=== PATIENT | female | born 1940 | race Caucasian/White ===

== ENCOUNTER 2018-07-26 22:46 | Inpatient (IN) | payer MEDICARE, BC ==
[~2018-07-26] VITALS: Ht 165.1 cm; Wt 59.0 kg
[2018-07-26] MEDS ORDERED: QUET50TA15 PO (23:16)
[2018-07-26] MEDS ORDERED: MULT-1201 PO (23:16)
[2018-07-26] MEDS ORDERED: MULT-465 PO (23:16)
[2018-07-26] MEDS ORDERED: MIRT15TA3 PO (23:16)
[2018-07-26] MEDS ORDERED: ALEN35TA29 PO (23:16)
[2018-07-26] MEDS ORDERED: ASPI81TA31 PO (23:16)
[2018-07-26] MEDS ORDERED: LEVO50TA8 PO (23:16)
[2018-07-26] MEDS ORDERED: ATOR10TA PO (23:16)
[2018-07-27] MEDS ORDERED: IV NORMAL SALINE 1000 ML BAG IV ONE
[2018-07-27 00:09] LABS: BASOPHILS % (AUTO) 0.4 % (0.0-2.0); EOSINOPHILS # (AUTO) 0.1 K/uL (0.0-0.7); EOSINOPHILS % (AUTO) 2.2 % (0.0-7.0); HEMATOCRIT 29.3 % (31.2-41.9); LYMPHOCYTES # (AUTO) 1.2 K/uL (20.0-40.0); LYMPHOCYTES % (AUTO) 25.4 % (20.5-51.5); MEAN CORPUSCULAR HEMOGLOBIN 32.2 uug (24.7-32.8); MEAN CORPUSCULAR HGB CONC 34 g/dL (32.3-35.6); MEAN CORPUSCULAR VOLUME 94.2 fL (75.5-95.3); MONOCYTES # (AUTO) 0.5 K/uL (2.0-10.0); MONOCYTES % (AUTO) 9.8 % (0.0-11.0); NEUTROPHILS % (AUTO) 62.2 % (38.5-71.5); PLATELET COUNT (AUTO) 201 K/uL (179-408); RED BLOOD CELL COUNT(AUTO) 3.11 MIL/uL (3.63-4.92); WHITE BLOOD COUNT (AUTO) 4.8 K/uL (3.8-11.8)
[2018-07-27 00:34] LABS: ALANINE AMINOTRANSFERASE 37 U/L (14-59); ALKALINE PHOSPHATASE 60 U/L (50-136); ASPARTATE AMINOTRANSFERASE 18 U/L (15-37); BILIRUBIN,DIRECT 0.1 mg/dL (0.0-0.2); BILIRUBIN,TOTAL 0.4 mg/dL (0.2-1.0); CARBON DIOXIDE 21 mmol/L (21-32); CHLORIDE 108 mmol/L (98-107); CREATININE 1.1 mg/dL (0.6-1.3); GLUCOSE 110 mg/dL (74-106); LIPASE 247 U/L (73-393); POTASSIUM 4.2 mmol/L (3.5-5.1); TOTAL PROTEIN, SERUM 6.1 g/dL (6.4-8.2); UREA NITROGEN, BLOOD 32 mg/dL (7-18)
[2018-07-27 00:51] LABS: *BILIRUBIN,URIN NEGATIVE (NEGATIVE); *BLOOD, URINE 1+ (NEGATIVE); *CLARITY,URINE CLOUDY (CLEAR); *COLOR,URINE YELLOW (YELLOW); *KETONES,URINE NEGATIVE (NEGATIVE); *UROBILINOGEN,URINE 0.2 E.U./dl (NORMAL); LEUKOCYTE ESTERASE ,URINE TRACE (NEGATIVE); NITRITE, URINE POSITIVE (NEGATIVE); PH,URINE 5.5 (5.0-8.0); UGLUCOSE NEGATIVE (NEGATIVE)
[2018-07-27 01:00] LABS: BACTERIA,URINE MANY /HPF (NONE SEEN); RBC,URINE 0-3 /HPF (0-3); SQUAMOUS EPITHELIAL CELL,UR FEW /HPF (NONE SEEN)
[2018-07-27] MEDS ORDERED: IV D5 1/2 NS 1000 ML 1,000 ML IV PRN (02:57)
[2018-07-27] MEDS ORDERED: MEROPENEM 500 MG VIAL IV ONE (02:59)
[2018-07-27] MEDS ORDERED: MEROPENEM 500 MG in IV NORMAL SALINE 100 ML IV ONE (03:00)
[2018-07-27] MEDS ORDERED: HYDROCODONE/APAP 5-325MG TABLET PO PRN (03:00)
[2018-07-27] MEDS ORDERED: ONDANSETRON 4 MG/2 ML VIAL IV PRN (03:00)
[2018-07-27] MEDS ORDERED: MAGNESIUM HYDROXIDE 30 ML LIQUID UDC PO PRN (03:00)
[2018-07-27] MEDS ORDERED: ACETAMINOPHEN 325 MG TABLET PO PRN (03:00)
[2018-07-27] MEDS ORDERED: Z GUARD REMEDY PASTE 57 GM TUBE TOP PRN (03:00)
[2018-07-27] MEDS ORDERED: MORPHINE SULFATE 2 MG/1 ML DISP.SYRIN IV PRN (03:00)
[2018-07-27 04:30] VITALS: BP 128/41
[2018-07-27] MEDS: IV D5 1/2 NS 1000 ML 1,000 ML IV PRN ×2 (04:49→15:25)
[2018-07-27] MEDS ORDERED: MEROPENEM 0.5 G in IV NORMAL SALINE 50 ML IV SCH (06:00)
[2018-07-27] MEDS ORDERED: LEVOTHYROXINE SODIUM 50 MCG TABLET PO SCH (09:00)
[2018-07-27] MEDS: MEROPENEM 500 MG in IV NORMAL SALINE 50 ML IV SCH ×2 (09:39→21:15)
[2018-07-27 12:10] LABS: BASOPHILS % (AUTO) 0.8 % (0.0-2.0); EOSINOPHILS # (AUTO) 0.2 K/uL (0.0-0.7); EOSINOPHILS % (AUTO) 4.6 % (0.0-7.0); HEMATOCRIT 27.7 % (31.2-41.9); HEMOGLOBIN 9.2 g/dL (10.9-14.3); LYMPHOCYTES % (AUTO) 27.9 % (20.5-51.5); MEAN CORPUSCULAR HEMOGLOBIN 31.7 uug (24.7-32.8); MEAN CORPUSCULAR HGB CONC 33 g/dL (32.3-35.6); MEAN CORPUSCULAR VOLUME 95.4 fL (75.5-95.3); MONOCYTES # (AUTO) 0.4 K/uL (2.0-10.0); MONOCYTES % (AUTO) 10.3 % (0.0-11.0); NEUTROPHILS # (AUTO) 2.1 K/uL (1.8-8.9); NEUTROPHILS % (AUTO) 56.4 % (38.5-71.5); PLATELET COUNT (AUTO) 172 K/uL (179-408); WHITE BLOOD COUNT (AUTO) 3.7 K/uL (3.8-11.8)
[2018-07-27 12:22] LABS: IRON, SERUM 41 ug/dL (50-175)
[2018-07-27 12:26] LABS: CARBON DIOXIDE 24 mmol/L (21-32); CHLORIDE 110 mmol/L (98-107); CREATININE 0.9 mg/dL (0.6-1.3); GLUCOSE 100 mg/dL (74-106); POTASSIUM 3.6 mmol/L (3.5-5.1); UREA NITROGEN, BLOOD 20 mg/dL (7-18)
[2018-07-27] MEDS ORDERED: QUET25TA PO (12:28)
[2018-07-27] MEDS ORDERED: LEVE500T9 PO (12:29)
[2018-07-27 12:32] LABS: THYROID STIMULATING HORMONE 2.034 mIU/mL (0.358-3.740)
[2018-07-27 12:33] LABS: ALANINE AMINOTRANSFERASE 32 U/L (14-59); ALKALINE PHOSPHATASE 55 U/L (50-136); ASPARTATE AMINOTRANSFERASE 15 U/L (15-37); BILIRUBIN,TOTAL 0.2 mg/dL (0.2-1.0); CHOLESTEROL 91 mg/dL (<200); HDL CHOLESTEROL 48 mg/dL (40-60); MAGNESIUM 1.9 mg/dL (1.8-2.4); PHOSPHOROUS 2.6 mg/dL (2.5-4.9); TOTAL PROTEIN, SERUM 5.5 g/dL (6.4-8.2); TRIGLYCERIDES 131 MG/DL (30-150)
[2018-07-27] MEDS ORDERED: QUETIAPINE FUMARATE 25 MG TABLET PO SCH ×2 (13:15→21:00)
[2018-07-27] MEDS ORDERED: FAMOTIDINE. 20 MG/2 ML VIAL IV SCH (14:30)
[2018-07-27 15:19] LABS: *OCCULT BLOOD STOOL POSITIVE (NEGATIVE)
[2018-07-27] MEDS: FAMOTIDINE. 20 MG/2 ML VIAL IV SCH ×2 (15:33→21:14)
[2018-07-27 20:03] VITALS: BP 163/52
[2018-07-27] MEDS ORDERED: LEVETIRACETAM 500 MG TABLET PO SCH (21:00)
[2018-07-27] MEDS ORDERED: ATORVASTATIN 10 MG TABLET PO SCH (21:00)
[2018-07-27] MEDS: MIRTAZAPINE 15 MG TAB.RAPDIS PO SCH (21:14)
[2018-07-28] VITALS: BP 143/62
[2018-07-28] MEDS: LORAZEPAM 2 MG/1 ML VIAL IV PRN ×3 (00:08→21:39)
[2018-07-28 04:00] VITALS: BP 162/58
[2018-07-28] MEDS: LEVOTHYROXINE SODIUM 50 MCG TABLET PO SCH (06:02)
[2018-07-28] MEDS ORDERED: LEVOTHYROXINE SODIUM 50 MCG TABLET PO SCH (07:00)
[2018-07-28 07:09] LABS: BASOPHILS % (AUTO) 0.7 % (0.0-2.0); EOSINOPHILS # (AUTO) 0.3 K/uL (0.0-0.7); EOSINOPHILS % (AUTO) 6.6 % (0.0-7.0); HEMATOCRIT 28.8 % (31.2-41.9); HEMOGLOBIN 9.7 g/dL (10.9-14.3); LYMPHOCYTES # (AUTO) 1.1 K/uL (20.0-40.0); LYMPHOCYTES % (AUTO) 26.9 % (20.5-51.5); MEAN CORPUSCULAR HEMOGLOBIN 32.1 uug (24.7-32.8); MEAN CORPUSCULAR HGB CONC 34 g/dL (32.3-35.6); MEAN CORPUSCULAR VOLUME 95.4 fL (75.5-95.3); MONOCYTES # (AUTO) 0.5 K/uL (2.0-10.0); MONOCYTES % (AUTO) 10.7 % (0.0-11.0); NEUTROPHILS # (AUTO) 2.3 K/uL (1.8-8.9); NEUTROPHILS % (AUTO) 55.1 % (38.5-71.5); PLATELET COUNT (AUTO) 204 K/uL (179-408); RED BLOOD CELL COUNT(AUTO) 3.02 MIL/uL (3.63-4.92); WHITE BLOOD COUNT (AUTO) 4.3 K/uL (3.8-11.8)
[2018-07-28 07:36] LABS: CARBON DIOXIDE 26 mmol/L (21-32); CHLORIDE 110 mmol/L (98-107); CHOLESTEROL 105 mg/dL (<200); GLUCOSE 93 mg/dL (74-106); HDL CHOLESTEROL 51 mg/dL (40-60); PHOSPHOROUS 3.1 mg/dL (2.5-4.9); POTASSIUM 3.3 mmol/L (3.5-5.1); TRIGLYCERIDES 159 MG/DL (30-150); UREA NITROGEN, BLOOD 15 mg/dL (7-18)
[2018-07-28] MEDS: IV D5 1/2 NS 1000 ML 1,000 ML IV PRN (10:06)
[2018-07-28] MEDS: MEROPENEM 500 MG in IV NORMAL SALINE 50 ML IV SCH ×2 (10:07→20:00)
[2018-07-28] MEDS: FAMOTIDINE. 20 MG/2 ML VIAL IV SCH ×2 (10:07→20:04)
[2018-07-28] MEDS ORDERED: ENALAPRILAT DIHYDRATE 1.25 MG/1 ML VIAL IV PRN (12:15)
[2018-07-28] MEDS: POTASSIUM CHLORIDE 50 ML IV SCH ×2 (12:33→14:18)
[2018-07-28 15:55] VITALS: BP 131/49
[2018-07-28] MEDS ORDERED: GOLYTELY 4000 ML BOTTLE PO ONE ×2 (17:00→21:00)
[2018-07-28] MEDS: QUETIAPINE FUMARATE 25 MG TABLET PO SCH (20:01)
[2018-07-28] MEDS: MIRTAZAPINE 15 MG TAB.RAPDIS PO SCH (20:01)
[2018-07-28 20:17] VITALS: BP 158/63
[2018-07-28] MEDS ORDERED: BISACODYL 5 MG TABLET.DR PO ONE (21:00)
[2018-07-29] VITALS (8 sets, daily range): BP systolic 126–179; BP diastolic 41–61
[2018-07-29] MEDS: LORAZEPAM 2 MG/1 ML VIAL IV PRN (05:16)
[2018-07-29] MEDS ORDERED: ENALAPRILAT DIHYDRATE 1.25 MG/1 ML VIAL IV ONE (05:57)
[2018-07-29 06:05] LABS: BASOPHILS % (AUTO) 0.6 % (0.0-2.0); EOSINOPHILS # (AUTO) 0.3 K/uL (0.0-0.7); EOSINOPHILS % (AUTO) 4.6 % (0.0-7.0); HEMATOCRIT 30.7 % (31.2-41.9); HEMOGLOBIN 10.3 g/dL (10.9-14.3); LYMPHOCYTES # (AUTO) 1.3 K/uL (20.0-40.0); LYMPHOCYTES % (AUTO) 24.2 % (20.5-51.5); MEAN CORPUSCULAR HEMOGLOBIN 31.7 uug (24.7-32.8); MEAN CORPUSCULAR HGB CONC 34 g/dL (32.3-35.6); MEAN CORPUSCULAR VOLUME 94.7 fL (75.5-95.3); MONOCYTES # (AUTO) 0.4 K/uL (2.0-10.0); MONOCYTES % (AUTO) 8.1 % (0.0-11.0); NEUTROPHILS # (AUTO) 3.4 K/uL (1.8-8.9); NEUTROPHILS % (AUTO) 62.5 % (38.5-71.5); PLATELET COUNT (AUTO) 214 K/uL (179-408); RED BLOOD CELL COUNT(AUTO) 3.24 MIL/uL (3.63-4.92); WHITE BLOOD COUNT (AUTO) 5.4 K/uL (3.8-11.8)
[2018-07-29 06:25] LABS: CARBON DIOXIDE 24 mmol/L (21-32); CHLORIDE 109 mmol/L (98-107); GLUCOSE 102 mg/dL (74-106); PHOSPHOROUS 3.1 mg/dL (2.5-4.9); POTASSIUM 3.5 mmol/L (3.5-5.1); UREA NITROGEN, BLOOD 11 mg/dL (7-18)
[2018-07-29] MEDS: LEVOTHYROXINE SODIUM 50 MCG TABLET PO SCH (07:00)
[2018-07-29] MEDS: FAMOTIDINE. 20 MG/2 ML VIAL IV SCH ×2 (08:08→21:04)
[2018-07-29] MEDS: MEROPENEM 500 MG in IV NORMAL SALINE 50 ML IV SCH (08:08)
[2018-07-29] MEDS: IV D5 1/2 NS 1000 ML 1,000 ML IV PRN (08:16)
[2018-07-29] MEDS ORDERED: Z GUARD REMEDY PASTE 57 GM TUBE ONE (10:22)
[2018-07-29] MEDS ORDERED: IV LACTATED RINGERS SOLUTION 1,000 ML BAG IV ONE (12:54)
[2018-07-29] MEDS ORDERED: PROPOFOL 200 MG/20 ML BOTTLE IV ONE (12:54)
[2018-07-29] MEDS ORDERED: ETOMIDATE 20 MG/10 ML VIAL MC ONE (12:54)
[2018-07-29] MEDS ORDERED: IRR STERIL WATER FOR IRR 1000 ML BOTTLE IR ONE (12:54)
[2018-07-29] MEDS: MIRTAZAPINE 15 MG TAB.RAPDIS PO SCH (20:53)
[2018-07-29] MEDS: QUETIAPINE FUMARATE 25 MG TABLET PO SCH (20:54)
[2018-07-29] MEDS: SULFAMETH/TRIMETH 800/160 MG TABLET PO SCH (21:04)
[2018-07-29] MEDS: Z GUARD REMEDY PASTE 57 GM TUBE TOP SCH (21:07)
[2018-07-30] MEDS: IV D5 1/2 NS 1000 ML 1,000 ML IV PRN ×2 (04:20→18:02)
[2018-07-30 04:50] VITALS: BP 152/63
[2018-07-30] MEDS: LEVOTHYROXINE SODIUM 50 MCG TABLET PO SCH (06:42)
[2018-07-30] MEDS: FAMOTIDINE. 20 MG/2 ML VIAL IV SCH ×2 (08:27→20:39)
[2018-07-30] MEDS: Z GUARD REMEDY PASTE 57 GM TUBE TOP SCH ×2 (08:27→20:39)
[2018-07-30] MEDS: SULFAMETH/TRIMETH 800/160 MG TABLET PO SCH ×2 (08:27→20:39)
[2018-07-30 11:25] VITALS: BP 126/45
[2018-07-30 16:20] VITALS: BP 148/50
[2018-07-30 20:00] VITALS: BP 130/48
[2018-07-30] MEDS: QUETIAPINE FUMARATE 25 MG TABLET PO SCH (20:39)
[2018-07-30] MEDS: MIRTAZAPINE 15 MG TAB.RAPDIS PO SCH (20:39)
[2018-07-31 04:00] VITALS: BP 148/53
[2018-07-31] MEDS: IV D5 1/2 NS 1000 ML 1,000 ML IV PRN (05:55)
[2018-07-31] MEDS: LEVOTHYROXINE SODIUM 50 MCG TABLET PO SCH (06:29)
[2018-07-31 08:00] VITALS: BP_SYST 141; BP_SYST 143; BP_DIAS 45; BP_DIAS 49
[2018-07-31] MEDS: FAMOTIDINE. 20 MG/2 ML VIAL IV SCH (08:40)
[2018-07-31] MEDS: SULFAMETH/TRIMETH 800/160 MG TABLET PO SCH (08:40)
[2018-07-31] MEDS: Z GUARD REMEDY PASTE 57 GM TUBE TOP SCH (08:41)
[2018-07-31] MEDS ORDERED: SULF1TAB48 PO (10:44)
[2018-07-31 11:59] VITALS: BP 145/48
== END 2018-07-31 12:55 | disposition home or self-care (01) | DRG 394 ==
LOC: ER 22:48 → TELE3 07-27 03:14 → MEDSURG3 07-29 10:45
PROVIDERS: ADMIT Internal Medicine; ATTEND Nurse Practitioner Acute Care
PROC: 0DBP8ZX Excision of Rectum, Via Natural or Artificial Opening Endoscopic, Diagnostic (ICD-10-PCS; principal; 2018-07-29)
PROC: 0DBM8ZX Excision of Descending Colon, Via Natural or Artificial Opening Endoscopic, Diagnostic (ICD-10-PCS; 2018-07-29)
DX: K62.89 Other specified diseases of anus and rectum (principal); E44.0 Moderate protein-calorie malnutrition; D68.59 Other primary thrombophilia; N39.0 Urinary tract infection, site not specified; K64.9 Unspecified hemorrhoids; F02.80 Dementia in other diseases classified elsewhere, unspecified severity, without behavioral disturbance, psychotic disturbance, mood disturbance, and anxiety; G30.9 Alzheimer's disease, unspecified; E03.9 Hypothyroidism, unspecified; E78.5 Hyperlipidemia, unspecified; E87.8 Other disorders of electrolyte and fluid balance, not elsewhere classified; D64.9 Anemia, unspecified; Z92.21 Personal history of antineoplastic chemotherapy; Z85.51 Personal history of malignant neoplasm of bladder; Z88.0 Allergy status to penicillin; Z68.21 Body mass index [BMI] 21.0-21.9, adult; B96.20 Unspecified Escherichia coli [E. coli] as the cause of diseases classified elsewhere; G40.909 Epilepsy, unspecified, not intractable, without status epilepticus; K52.9 Noninfective gastroenteritis and colitis, unspecified; Z85.048 Personal history of other malignant neoplasm of rectum, rectosigmoid junction, and anus
CPT/HCPCS: 36415; 51702; 70030-TC; 71045; 82378; 83550; 83605; 83690; 83735; 84100; 84443; 85025; 85730; 86850; 86900; 86901; 86920; 87077; 87086; 93005; 97110; 97116; 97530; A4217; A4663; G0378; J2060; J2185; J3480; J3490; J7030; J7120

== ENCOUNTER 2021-03-07 13:58 | Inpatient (IN) | payer MEDICARE, BC ==
[~2021-03-07] VITALS: Ht 157.5 cm; Wt 74.8 kg
[~2021-03-07 13:58] MED LIST: ALEN35TA53 PO; ATOR10TA PO; LEVE500T9 PO; LEVO50TA8 PO; MIRT15TA3 PO; MULT-1201 PO; MULT-465 PO; QUET25TA PO; SULF1TAB48 PO
[2021-03-07 15:21] LABS: HEMATOCRIT 35.7 % (31.2-41.9); MEAN CORPUSCULAR HEMOGLOBIN 33.7 uug (24.7-32.8); MEAN CORPUSCULAR VOLUME 98.5 fL (75.5-95.3); PLATELET COUNT (AUTO) 228 K/uL (179-408)
[2021-03-07 15:27] LABS: CARBON DIOXIDE 22 mmol/L (21-32); CHLORIDE 106 mmol/L (98-107); CREATININE 1.7 mg/dL (0.6-1.3); GLUCOSE 113 mg/dL (74-106); POTASSIUM 4.3 mmol/L (3.5-5.1); UREA NITROGEN, BLOOD 31 mg/dL (7-18)
[2021-03-07 15:34] LABS: ALANINE AMINOTRANSFERASE 27 U/L (14-59); ALKALINE PHOSPHATASE 69 U/L (50-136); ASPARTATE AMINOTRANSFERASE 20 U/L (15-37); BILIRUBIN,DIRECT 0.1 mg/dL (0.0-0.2); BILIRUBIN,TOTAL 0.4 mg/dL (0.2-1.0); TOTAL PROTEIN, SERUM 6.9 g/dL (6.4-8.2)
[2021-03-07 16:05] LABS: *BILIRUBIN,URIN NEGATIVE (NEGATIVE); *BLOOD, URINE NEGATIVE (NEGATIVE); *CLARITY,URINE CLEAR (CLEAR); *COLOR,URINE YELLOW (YELLOW); *KETONES,URINE NEGATIVE (NEGATIVE); *UROBILINOGEN,URINE 0.2 E.U./dl (NORMAL); LEUKOCYTE ESTERASE ,URINE NEGATIVE (NEGATIVE); NITRITE, URINE NEGATIVE (NEGATIVE); PH,URINE 5.5 (5.0-8.0); UGLUCOSE NEGATIVE (NEGATIVE)
--- NOTE | 2021-03-07 20:00 | NUR ---
Patient in bed interacting with daughter at bedside with no distress noted.
[2021-03-07] MEDS ORDERED: levETIRAcetam 500 MG TABLET PO SCH (21:00)
--- NOTE | 2021-03-07 22:07 | NUR ---
Transfered to 3rd floor Tele via gurny with no distress noted.
--- NOTE | 2021-03-07 22:30 | NUR ---
PATIENT ADMITTED VIA GURNEY. A/O X3, FORGETFUL. DENIES PAIN OR DISCOMFORT. NO RESP. DISTRESS NOTED. PLACED ON TELE ORDERED SR. BED ALARM ON, ALL NEEDS ATTENDED.
[2021-03-07] MEDS: MIRTAZAPINE 15 MG TABLET PO SCH (22:41)
[2021-03-07] MEDS: ATORVASTATIN 10 MG TABLET PO SCH (22:41)
[2021-03-07 23:20] VITALS: BP 145/53
[2021-03-08 00:14] VITALS: BP 138/65
[2021-03-08 04:13] VITALS: BP 130/70
--- NOTE | 2021-03-08 05:57 | NUR ---
PATIENT SLEPT WELL THROUGHOUT THE NIGHT. ON TELE SR.
[2021-03-08] MEDS: LEVOTHYROXINE SODIUM 50 MCG TABLET PO SCH (06:19)
--- NOTE | 2021-03-08 08:06 | NUR ---
ORDER FOR AN MRI OF THE BRAIN W/O CONTRAST, WAS FAXED OVER TO [facility]
[2021-03-08] MEDS: ASPIRIN 81 MG TAB.CHEW PO SCH (08:28)
[2021-03-08] MEDS: levETIRAcetam 500 MG TABLET PO SCH ×2 (08:29→20:26)
[2021-03-08 10:00] LABS: CARBON DIOXIDE 23 mmol/L (21-32); CHLORIDE 110 mmol/L (98-107); CREATININE 1.5 mg/dL (0.6-1.3); GLUCOSE 90 mg/dL (74-106); POTASSIUM 3.8 mmol/L (3.5-5.1); UREA NITROGEN, BLOOD 26 mg/dL (7-18)
[2021-03-08 10:02] LABS: MEAN CORPUSCULAR HEMOGLOBIN 33.6 uug (24.7-32.8); PLATELET COUNT (AUTO) 211 K/uL (179-408)
[2021-03-08 10:28] LABS: THYROID STIMULATING HORMONE 3.178 mIU/mL (0.358-3.740)
[2021-03-08 10:31] LABS: ALANINE AMINOTRANSFERASE 32 U/L (14-59); ALKALINE PHOSPHATASE 65 U/L (50-136); ASPARTATE AMINOTRANSFERASE 18 U/L (15-37); BILIRUBIN,TOTAL 0.4 mg/dL (0.2-1.0); MAGNESIUM 2.3 mg/dL (1.8-2.4); PHOSPHOROUS 2.8 mg/dL (2.5-4.9); TOTAL PROTEIN, SERUM 6.7 g/dL (6.4-8.2)
[2021-03-08 12:00] VITALS: BP 119/39
--- NOTE | 2021-03-08 13:00 | NUR ---
to MRI in [place] per ambulance, pt in stable condition
--- NOTE | 2021-03-08 14:31 | NUR ---
back from Mri- no distress noted, placed samm on tele- SR
[2021-03-08 15:00] VITALS: BP_SYST 131; BP_SYST 139; BP_SYST 148; BP_DIAS 59; BP_DIAS 66; BP_DIAS 69
[2021-03-08 16:00] VITALS: BP 121/45
[2021-03-08] MEDS ORDERED: IV D5 1/2 NS 1000 ML 1,000 ML IV ONE (16:00)
--- NOTE | 2021-03-08 16:30 | NUR ---
seen by Dr Jernigan and Dr Thurman, equipment operating engineer at bedside
--- NOTE | 2021-03-08 18:31 | NUR ---
pt in no distress, tele SR, safety measures maintained, call light within reach, all needs attended and met, call light within reach
[2021-03-08 20:00] VITALS: BP 140/53
[2021-03-08] MEDS: ATORVASTATIN 10 MG TABLET PO SCH (20:26)
[2021-03-08] MEDS: MIRTAZAPINE 15 MG TABLET PO SCH (20:26)
--- NOTE | 2021-03-08 23:17 | NUR ---
Patient received in bed in semi fowlers position. AAOx4, denies any pain at this time. Sleeping intermittently. On RA, no SOB noted. PIV to right FA #22 intact and patent, on D5 1/2 NS at 50cc/min. NSR on Tele with Hr of 60/ minute. Needs assessed and met. Safety measures initiated. Call light within reach.
[2021-03-09] VITALS: BP 148/63
[2021-03-09 04:00] VITALS: BP 135/63
--- NOTE | 2021-03-09 06:12 | NUR ---
Patient slept well last night. Remains AAOx4. Denies any pain or SOB. NSR on tele with HR of 69/min. IV site on right FA remains intact and patent. IVF infusing. No adverse reaction noted from PO antibiotic. Needs assessed and attended to. Safety measure maintained and call espinoza within reached.
[2021-03-09] MEDS: LEVOTHYROXINE SODIUM 50 MCG TABLET PO SCH (06:16)
--- NOTE | 2021-03-09 08:00 | NUR ---
awake alert and oriented, denies of pain, states catching up on her sleep since unable to sleep at night the other day, tele SR 60's, denies of pain, explained plan of care- verbalized understanding, safety measures maintained, call light within reach
[2021-03-09] MEDS: levETIRAcetam 500 MG TABLET PO SCH (08:18)
[2021-03-09] MEDS: ASPIRIN 81 MG TAB.CHEW PO SCH (08:18)
--- NOTE | 2021-03-09 08:30 | NUR ---
iv site red - iv removed- no s/s of infection noted
--- NOTE | 2021-03-09 11:00 | NUR ---
seen by PT and orthostatic BP done and relayed to Dr Harris.
[2021-03-09 11:15] VITALS: BP_SYST 134; BP_SYST 135; BP_SYST 169; BP_DIAS 47; BP_DIAS 51; BP_DIAS 59
[2021-03-09 11:46] VITALS: BP 143/62
--- NOTE | 2021-03-09 12:00 | NUR ---
ECHO done in the room, ambulates to with minimal assist- tolerates well
[2021-03-09] MEDS ORDERED: LEVE500T9 PO (13:30)
[2021-03-09] MEDS ORDERED: ASPI81TA31 PO (13:30)
--- NOTE | 2021-03-09 13:30 | NUR ---
pt going home, caregiver just left but is coming back, pt aware of discharge and in agreement
--- NOTE | 2021-03-09 15:35 | NUR ---
discharge instructions given to pt and caregiver, verbalized understanding, id bracelet removed, escorted to car per w/c in stable condition, all belongings with pt
== END 2021-03-09 15:45 | disposition home health service (06) | DRG 100 ==
LOC: ER 13:58 → TELE3 22:00 → MEDSURG3 03-09 11:54
PROVIDERS: ADMIT Internal Medicine; ATTEND Internal Medicine
DX: G40.909 Epilepsy, unspecified, not intractable, without status epilepticus (principal); N17.0 Acute kidney failure with tubular necrosis; G93.41 Metabolic encephalopathy; E87.2 Acidosis; R55 Syncope and collapse; J32.3 Chronic sphenoidal sinusitis; D50.9 Iron deficiency anemia, unspecified; E03.9 Hypothyroidism, unspecified; E78.5 Hyperlipidemia, unspecified; E86.1 Hypovolemia; F03.90 Unspecified dementia, unspecified severity, without behavioral disturbance, psychotic disturbance, mood disturbance, and anxiety; M81.0 Age-related osteoporosis without current pathological fracture; Z20.822 Contact with and (suspected) exposure to COVID-19; Z85.048 Personal history of other malignant neoplasm of rectum, rectosigmoid junction, and anus; Z92.3 Personal history of irradiation; Z88.0 Allergy status to penicillin; E86.0 Dehydration; G31.83 Neurocognitive disorder with Lewy bodies; F02.80 Dementia in other diseases classified elsewhere, unspecified severity, without behavioral disturbance, psychotic disturbance, mood disturbance, and anxiety; Z86.011 Personal history of benign neoplasm of the brain; Z92.21 Personal history of antineoplastic chemotherapy; I95.9 Hypotension, unspecified; E66.9 Obesity, unspecified; I34.0 Nonrheumatic mitral (valve) insufficiency; Z86.73 Personal history of transient ischemic attack (TIA), and cerebral infarction without residual deficits; G93.89 Other specified disorders of brain; F29 Unspecified psychosis not due to a substance or known physiological condition; Z68.30 Body mass index [BMI] 30.0-30.9, adult
CPT/HCPCS: 36415; 70030-TC; 70450; 70551; 71045; 83605; 83735; 84100; 84443; 85025; 87040; 87086; 93005; 93307; 97161; A4663; G0378; J3490

== ENCOUNTER 2021-07-11 18:10 | Inpatient (IN) | payer MEDICARE, BC ==
[~2021-07-11] VITALS: Ht 157.5 cm; Wt 74.8 kg
[~2021-07-11 18:10] MED LIST changes: +ASPI81TA31 PO; -SULF1TAB48 PO
[2021-07-11] MEDS ORDERED: IV NORMAL SALINE 1000 ML BAG IV ONE (19:30)
[2021-07-11 19:56] LABS: HEMATOCRIT 36.1 % (31.2-41.9); MEAN CORPUSCULAR HEMOGLOBIN 33.2 uug (24.7-32.8); MEAN CORPUSCULAR VOLUME 95.8 fL (75.5-95.3); PLATELET COUNT (AUTO) 271 K/uL (179-408)
[2021-07-11 19:58] LABS: CARBON DIOXIDE 25 mmol/L (21-32); CHLORIDE 106 mmol/L (98-107); CREATININE 2.1 mg/dL (0.6-1.3); GLUCOSE 114 mg/dL (74-106); UREA NITROGEN, BLOOD 41 mg/dL (7-18)
[2021-07-11 20:00] LABS: *BILIRUBIN,URIN NEGATIVE (NEGATIVE); *BLOOD, URINE NEGATIVE (NEGATIVE); *CLARITY,URINE CLEAR (CLEAR); *COLOR,URINE YELLOW (YELLOW); *KETONES,URINE 2+ (NEGATIVE); *UROBILINOGEN,URINE 0.2 E.U./dl (NORMAL); LEUKOCYTE ESTERASE ,URINE NEGATIVE (NEGATIVE); NITRITE, URINE NEGATIVE (NEGATIVE); PH,URINE 5.5 (5.0-8.0); UGLUCOSE NEGATIVE (NEGATIVE)
[2021-07-11 20:06] LABS: ALANINE AMINOTRANSFERASE 37 U/L (14-59); ALKALINE PHOSPHATASE 72 U/L (50-136); ASPARTATE AMINOTRANSFERASE 24 U/L (15-37); BILIRUBIN,DIRECT 0.2 mg/dL (0.0-0.2); BILIRUBIN,TOTAL 0.5 mg/dL (0.2-1.0); ETHANOL < 3 MG/DL (0-0); TOTAL PROTEIN, SERUM 7.6 g/dL (6.4-8.2)
[2021-07-11 20:15] LABS: *AMPHETAMINE, URINE NEGATIVE (NEGATIVE); *CANNABINOID, URINE NEGATIVE (NEGATIVE); *COCCAINE, URINE NEGATIVE (NEGATIVE); *OPIATE, URINE NEGATIVE (NEGATIVE); *PHENCYCLIDINE SCREEN,URINE NEGATIVE (NEGATIVE); BACTERIA,URINE NONE SEEN /HPF (NONE SEEN); CALCIUM PHOSPHATE CRYSTALS,UR MODERATE /HPF (NONE SEEN); RBC,URINE 0-3 /HPF (0-3); SQUAMOUS EPITHELIAL CELL,UR MANY /HPF (NONE SEEN); WBC,URINE 0-3 /HPF (0-3)
[2021-07-11] MEDS ORDERED: IV NS 1000 ML 1,000 ML IV ONE (21:00)
[2021-07-11] MEDS ORDERED: QUETIAPINE FUMARATE 25 MG TABLET PO ONE (21:45)
[2021-07-11] MEDS ORDERED: DOCUSATE SODIUM 100 MG CAPSULE PO ONE (21:45)
[2021-07-11] MEDS ORDERED: MIRTAZAPINE 15 MG TABLET PO ONE (21:45)
[2021-07-11] MEDS ORDERED: MAGNESIUM HYDROXIDE 30 ML LIQUID UDC PO PRN (22:00)
[2021-07-11] MEDS ORDERED: REMEDY ESSENTIAL ZINC PASTE 113 GM TP PRN (22:00)
[2021-07-11] MEDS ORDERED: ONDANSETRON 4 MG/2 ML VIAL IV PRN (22:00)
[2021-07-11] MEDS ORDERED: ACETAMINOPHEN 325 MG TABLET PO PRN (22:00)
[2021-07-11] MEDS ORDERED: MIRTAZAPINE 15 MG TABLET ONE (22:04)
[2021-07-11] MEDS ORDERED: QUETIAPINE FUMARATE 25 MG TABLET ONE (22:04)
[2021-07-11 23:30] VITALS: BP 165/80
[2021-07-11] MEDS: IV NS 1000 ML 1,000 ML IV SCH (23:54)
[2021-07-12 01:30] VITALS: BP 154/70
[2021-07-12 04:00] VITALS: BP 147/54
[2021-07-12] MEDS: LEVOTHYROXINE SODIUM 50 MCG TABLET PO SCH (06:05)
[2021-07-12 07:14] LABS: HEMATOCRIT 31.3 % (31.2-41.9); MEAN CORPUSCULAR HEMOGLOBIN 33.4 uug (24.7-32.8); MEAN CORPUSCULAR VOLUME 97.4 fL (75.5-95.3); PLATELET COUNT (AUTO) 185 K/uL (179-408)
[2021-07-12 07:58] LABS: CARBON DIOXIDE 21 mmol/L (21-32); CHLORIDE 112 mmol/L (98-107); CREATININE 1.5 mg/dL (0.6-1.3); GLUCOSE 91 mg/dL (74-106); MAGNESIUM 2.4 mg/dL (1.8-2.4); POTASSIUM 3.7 mmol/L (3.5-5.1); UREA NITROGEN, BLOOD 30 mg/dL (7-18)
[2021-07-12] MEDS: ASPIRIN 81 MG TAB.CHEW PO SCH (08:30)
[2021-07-12] MEDS: levETIRAcetam 500 MG TABLET PO SCH ×2 (08:30→20:22)
[2021-07-12] MEDS: MULTIVITAMINS,THERAPEUTIC TABLET PO SCH (08:30)
[2021-07-12] MEDS: VITAMIN B COMPLEX 1 TABLET PO SCH (08:31)
[2021-07-12] MEDS ORDERED: QUETIAPINE FUMARATE 25 MG TABLET PO SCH (09:00)
[2021-07-12] MEDS: IV NS 1000 ML 1,000 ML IV SCH (09:24)
[2021-07-12] MEDS ORDERED: MIDO5TAB5 PO (11:57)
[2021-07-12 11:59] VITALS: BP 133/52
[2021-07-12 16:00] VITALS: BP 107/60
[2021-07-12] MEDS ORDERED: TEMAZEPAM 15 MG CAPSULE PO PRN (18:30)
[2021-07-12] MEDS: NYSTATIN POWDER 15 GM BOTTLE TOP SCH ×2 (19:27→20:23)
[2021-07-12 20:38] VITALS: BP 166/56
[2021-07-12] MEDS ORDERED: MIRTAZAPINE 15 MG TAB.RAPDIS PO SCH (21:00)
[2021-07-12] MEDS ORDERED: ATORVASTATIN 10 MG TABLET PO SCH (21:00)
[2021-07-13 00:55] VITALS: BP 165/58
[2021-07-13 04:43] VITALS: BP 122/57
[2021-07-13] MEDS: LEVOTHYROXINE SODIUM 50 MCG TABLET PO SCH (06:20)
[2021-07-13 06:48] LABS: HEMATOCRIT 33.1 % (31.2-41.9); MEAN CORPUSCULAR HEMOGLOBIN 33.2 uug (24.7-32.8); MEAN CORPUSCULAR VOLUME 96.4 fL (75.5-95.3); PLATELET COUNT (AUTO) 221 K/uL (179-408)
[2021-07-13 07:05] LABS: CREATININE 1.3 mg/dL (0.6-1.3); MAGNESIUM 2.2 mg/dL (1.8-2.4); PHOSPHOROUS 2.9 mg/dL (2.5-4.9); POTASSIUM 3.7 mmol/L (3.5-5.1)
[2021-07-13] MEDS: MULTIVITAMINS,THERAPEUTIC TABLET PO SCH (09:36)
[2021-07-13] MEDS: levETIRAcetam 500 MG TABLET PO SCH (09:36)
[2021-07-13] MEDS: VITAMIN B COMPLEX 1 TABLET PO SCH (09:36)
[2021-07-13] MEDS: ASPIRIN 81 MG TAB.CHEW PO SCH (09:36)
[2021-07-13] MEDS: NYSTATIN POWDER 15 GM BOTTLE TOP SCH (09:37)
[2021-07-13 11:44] VITALS: BP 151/99
[2021-07-13] MEDS ORDERED: HYDR-894 PO (12:19)
[2021-07-15] MEDS ORDERED: ALENDRONATE SODIUM 70 MG TABLET PO SCH (06:00)
== END 2021-07-13 14:10 | disposition home or self-care (01) | DRG 640 ==
LOC: ER 18:16 → MEDSURG3 22:53
PROVIDERS: ADMIT Family Medicine; ATTEND Family Medicine
DX: E86.0 Dehydration (principal); N17.0 Acute kidney failure with tubular necrosis; G92.8 Other toxic encephalopathy; D68.59 Other primary thrombophilia; E03.9 Hypothyroidism, unspecified; F41.9 Anxiety disorder, unspecified; Z88.0 Allergy status to penicillin; Z91.018 Allergy to other foods; Z20.822 Contact with and (suspected) exposure to COVID-19; E78.5 Hyperlipidemia, unspecified; G30.9 Alzheimer's disease, unspecified; F02.80 Dementia in other diseases classified elsewhere, unspecified severity, without behavioral disturbance, psychotic disturbance, mood disturbance, and anxiety; M81.0 Age-related osteoporosis without current pathological fracture; Z85.048 Personal history of other malignant neoplasm of rectum, rectosigmoid junction, and anus; Z79.890 Hormone replacement therapy; R73.9 Hyperglycemia, unspecified; I12.9 Hypertensive chronic kidney disease with stage 1 through stage 4 chronic kidney disease, or unspecified chronic kidney disease; N18.9 Chronic kidney disease, unspecified; K64.9 Unspecified hemorrhoids; G25.81 Restless legs syndrome; I95.1 Orthostatic hypotension; E66.9 Obesity, unspecified; Z68.30 Body mass index [BMI] 30.0-30.9, adult; Z85.51 Personal history of malignant neoplasm of bladder; Z92.21 Personal history of antineoplastic chemotherapy; D53.9 Nutritional anemia, unspecified; Z74.09 Other reduced mobility; Z82.49 Family history of ischemic heart disease and other diseases of the circulatory system
CPT/HCPCS: 36415; 71045; 83735; 84100; 84443; 84484; 84550; 85025; 87086; 93005; 97161; A4663; G0378; G0480; J7030

== ENCOUNTER 2021-12-02 21:05 | Inpatient (IN) | payer MEDICARE, BC ==
[2021-12-01] MEDS: NOREPINEPHRINE BITARTRATE 8 MG in IV NORMAL SALINE 242 ML IV PRN (23:05)
[~2021-12-02] VITALS: Ht 157.5 cm; Wt 74.8 kg
[~2021-12-02 21:05] MED LIST changes: +HYDR-894 PO; +MIDO5TAB5 PO; -QUET25TA PO
[2021-12-02] MEDS ORDERED: CEFEPIME HCL 1 G in IV DEXTROSE 5% 50 ML IV ONE (21:15)
[2021-12-02] MEDS ORDERED: VANCOMYCIN 1G/D5W 200 ML PIGGYBACK IV ONE (21:15)
[2021-12-02] MEDS ORDERED: AZITHROMYCIN IV 500 MG in IV DEXTROSE 5% 250 ML IV ONE (21:15)
[2021-12-02] MEDS ORDERED: IV NS 1000 ML 1,000 ML IV ONE ×2 (21:15→22:15)
[2021-12-02] MEDS ORDERED: NOREPINEPHRINE BITARTRATE 4 MG/4 ML VIAL IV ONE (22:01)
[2021-12-02] MEDS ORDERED: VANCOMYCIN IV 200 ML ONE (22:01)
[2021-12-02] MEDS ORDERED: AZITHROMYCIN 500MG/ D5W 250ML IVPB **ER PYXIS ONLY IV ONE (22:01)
[2021-12-02] MEDS ORDERED: CEFEPIME HCL 1 G VIAL ONE (22:01)
[2021-12-02 22:10] LABS: HEMATOCRIT 26.5 % (31.2-41.9); MEAN CORPUSCULAR HEMOGLOBIN 30.5 uug (24.7-32.8); MEAN CORPUSCULAR VOLUME 100.9 fL (75.5-95.3); PLATELET COUNT (AUTO) 588 K/uL (179-408)
[2021-12-02] MEDS ORDERED: POLY17PO4 PO (22:15)
[2021-12-02] MEDS ORDERED: DOCU250C14 PO (22:15)
[2021-12-02] MEDS ORDERED: QUET50TA PO (22:15)
[2021-12-02] MEDS ORDERED: GABA-532 PO (22:15)
[2021-12-02] MEDS ORDERED: LACT1CAP71 PO (22:15)
[2021-12-02] MEDS ORDERED: QUET25TA PO (22:15)
[2021-12-02] MEDS ORDERED: MIRT-119 PO (22:15)
[2021-12-02] MEDS ORDERED: D-MA1POW MC (22:15)
[2021-12-02] MEDS ORDERED: ATOR10TA PO (22:15)
[2021-12-02] MEDS ORDERED: MV-M1TAB18 PO (22:15)
[2021-12-02] MEDS ORDERED: INUL1TAB4 PO (22:15)
[2021-12-02 22:27] LABS: ALANINE AMINOTRANSFERASE 75 U/L (14-59); ALKALINE PHOSPHATASE 598 U/L (50-136); ASPARTATE AMINOTRANSFERASE 58 U/L (15-37); BILIRUBIN,DIRECT 0.8 mg/dL (0.0-0.2); CARBON DIOXIDE 14 mmol/L (21-32); CHLORIDE 105 mmol/L (98-107); CREATININE 3.2 mg/dL (0.6-1.3); GLUCOSE 84 mg/dL (74-106); POTASSIUM 5.4 mmol/L (3.5-5.1); TOTAL PROTEIN, SERUM 6.9 g/dL (6.4-8.2); UREA NITROGEN, BLOOD 50 mg/dL (7-18)
[2021-12-02] MEDS: NOREPINEPHRINE BITARTRATE 8 MG in IV NORMAL SALINE 242 ML IV PRN (23:04)
[2021-12-03] VITALS (39 sets, daily range): BP systolic 44–159; BP diastolic 16–119
[2021-12-03] MEDS ORDERED: NOREPINEPHRINE BITARTRATE 8 MG in IV NORMAL SALINE 242 ML IV PRN (00:45)
[2021-12-03] MEDS ORDERED: ACETAMINOPHEN 325 MG TABLET PO PRN (01:00)
[2021-12-03] MEDS ORDERED: REMEDY ESSENTIAL ZINC PASTE 113 GM TP PRN (01:00)
[2021-12-03] MEDS ORDERED: MAGNESIUM HYDROXIDE 30 ML LIQUID UDC PO PRN (01:00)
[2021-12-03] MEDS ORDERED: ONDANSETRON 4 MG/2 ML VIAL IV PRN (01:00)
[2021-12-03] MEDS ORDERED: ACETAMINOPHEN 650 MG SUPP.RECT RC PRN (01:00)
[2021-12-03] MEDS ORDERED: IV D5/ 0.9% NACL 1,000 ML IV PRN (01:00)
[2021-12-03] MEDS ORDERED: PIPERACILLIN SODIUM/TAZOBACTAM 3.375 G in IV DEXTROSE 5% 50 ML IV SCH ×2 (02:00→08:00)
[2021-12-03] MEDS ORDERED: PIPERACILLIN/TAZOBACTAM/D5W 50 ML IV ONE (02:04)
[2021-12-03] MEDS ORDERED: ACETAMINOPHEN 650 MG SUPP.RECT RC ONE (02:24)
[2021-12-03 02:59] LABS: *BILIRUBIN,URIN NEGATIVE (NEGATIVE); *BLOOD, URINE 3+ (NEGATIVE); *CLARITY,URINE TURBID (CLEAR); *KETONES,URINE NEGATIVE (NEGATIVE); *UROBILINOGEN,URINE 0.2 E.U./dl (NORMAL); LEUKOCYTE ESTERASE ,URINE 3+ (NEGATIVE); NITRITE, URINE POSITIVE (NEGATIVE); UGLUCOSE NEGATIVE (NEGATIVE)
[2021-12-03 03:08] LABS: *COLOR,URINE BLOODY (YELLOW)
[2021-12-03 03:09] LABS: BACTERIA,URINE MANY /HPF (NONE SEEN); RBC,URINE TNTC /HPF (0-3); SQUAMOUS EPITHELIAL CELL,UR MODERATE /HPF (NONE SEEN); WBC,URINE TNTC /HPF (0-3)
[2021-12-03 03:24] LABS: ABG BASE EXCESS -12.8 mmol/L; ABG HCO3 9.9 mmol/L; ABG PCO2 16.1 mmHg (35.0-45.0); ABG PH 7.407 (7.350-7.450); ABG PO2 75.1 mmHg (75.0-100.0); ABG SITE LEFT RADIAL; ABG TOTAL HEMOGLOBIN 9.6 G/dL (12.0-16.0); COHb 0.3 % (0.5-1.5); MetHb 0.2 % (0.0-1.5); O2Hb 94.8 % (94.0-97.0); VENT MODE Nasal Cannula
[2021-12-03] MEDS ORDERED: NOREPINEPHRINE BITARTRATE 4 MG/4 ML VIAL IV ONE (03:47)
[2021-12-03] MEDS ORDERED: VANCOMYCIN IV 500 MG in IV DEXTROSE 5% 100 ML IV ONE (08:30)
[2021-12-03] MEDS ORDERED: NOREPINEPHRINE BITARTRATE 32 MG in IV NORMAL SALINE 218 ML IV PRN (08:40)
[2021-12-03] MEDS ORDERED: MORPHINE SULFATE 2 MG/1 ML DISP.SYRIN IV ONE ×3 (09:15→23:45)
[2021-12-03] MEDS: PIPERACILLIN/TAZO 2.25 G in IV DEXTROSE 5% 50 ML IV SCH ×2 (10:38→18:24)
[2021-12-03] MEDS ORDERED: LORAZEPAM 2 MG/1 ML VIAL IV PRN ×2 (11:45→23:45)
[2021-12-03] MEDS ORDERED: MORPHINE SULFATE 2 MG/1 ML DISP.SYRIN IV PRN (11:45)
[2021-12-03] MEDS ORDERED: LORAZEPAM 2 MG/1 ML VIAL ONE ×3 (11:48→23:37)
[2021-12-03] MEDS ORDERED: MORPHINE SULFATE 2 MG/1 ML DISP.SYRIN ONE ×3 (11:49→23:35)
[2021-12-03] MEDS ORDERED: MORPHINE SULFATE PF IV DRIP 100 MG in IV DEXTROSE 5% 96 ML IV PRN (22:45)
[2021-12-03] MEDS: LORAZEPAM 2 MG/1 ML VIAL IV PRN (23:08)
[2021-12-04] VITALS: BP 54/31
[2021-12-04] MEDS: LORAZEPAM 2 MG/1 ML VIAL IV PRN (00:37)
[2021-12-04 04:00] VITALS: BP 51/28
[2021-12-04 06:45] VITALS: BP 51/27
== END 2021-12-04 08:00 | DRG 871 ==
LOC: ER 21:05 → TRANSITION 12-03 01:38
PROVIDERS: ADMIT Nurse Practitioner Acute Care; ATTEND Nurse Practitioner Acute Care
PROC: 05HF33Z Insertion of Infusion Device into Left Cephalic Vein, Percutaneous Approach (ICD-10-PCS; principal; 2021-12-03)
DX: A41.9 Sepsis, unspecified organism (principal); E43 Unspecified severe protein-calorie malnutrition; N17.0 Acute kidney failure with tubular necrosis; R65.21 Severe sepsis with septic shock; I21.A1 Myocardial infarction type 2; J96.91 Respiratory failure, unspecified with hypoxia; N39.0 Urinary tract infection, site not specified; E87.2 Acidosis; G93.40 Encephalopathy, unspecified; Z51.5 Encounter for palliative care; G30.9 Alzheimer's disease, unspecified; F02.80 Dementia in other diseases classified elsewhere, unspecified severity, without behavioral disturbance, psychotic disturbance, mood disturbance, and anxiety; R62.7 Adult failure to thrive; Z68.30 Body mass index [BMI] 30.0-30.9, adult; Z87.440 Personal history of urinary (tract) infections; Z88.0 Allergy status to penicillin; Z91.018 Allergy to other foods; E87.5 Hyperkalemia; E78.5 Hyperlipidemia, unspecified; Z85.048 Personal history of other malignant neoplasm of rectum, rectosigmoid junction, and anus; Z20.822 Contact with and (suspected) exposure to COVID-19; K76.1 Chronic passive congestion of liver; D64.9 Anemia, unspecified; Z79.899 Other long term (current) drug therapy; Z74.01 Bed confinement status; E03.9 Hypothyroidism, unspecified
CPT/HCPCS: 36415; 36600; 71045; 82803; 83605; 84484; 85025; 85730; 87040; 87086; 93005; A4663; G0378; J0456; J0692; J2060; J2270; J2274; J2543; J3370; J3490; J7040; J7042